=== PATIENT | female | born 1965 | race Caucasian/White ===

== ENCOUNTER → 2016-10-21 | Outpatient (CLI) | payer BC ==
[~2016-10-21] VITALS: Ht 160 cm; Wt 90.7 kg
[~2016-10-21] MED LIST: ALEVE220 MG PO; NAPROSYN500 MG PO; PROZAC20 MG PO; TYLENOL REGULA325 MG PO
== END | disposition home or self-care (01) ==
LOC: AMB 13:28
PROC: 0DJD8ZZ Inspection of Lower Intestinal Tract, Via Natural or Artificial Opening Endoscopic (ICD-10-PCS; principal; 2016-10-21)
DX: Z12.11 Encounter for screening for malignant neoplasm of colon (principal); K64.8 Other hemorrhoids; E78.5 Hyperlipidemia, unspecified; Z88.5 Allergy status to narcotic agent; Z88.0 Allergy status to penicillin
CPT/HCPCS: J2250